=== PATIENT | male | born 1990 | race Caucasian/White ===

== ENCOUNTER 2016-07-22 21:56 | Emergency (ER) | payer SELFPAY ==
[2016-07-22] MEDS ORDERED: KETOROLAC TROMETHAMINE 60 MG/2 ML SDV IM ONE (23:50)
--- NOTE | 2016-07-23 01:46 | ER Document Report ---
ED Neck/Back Problem - General Mode of Arrival: Ambulatory Information source: Patient TRAVEL OUTSIDE OF THE [place] IN LAST 30 DAYS: No - HPI Patient complains to provider of: Pain Onset: Other - Feb 2016 Onset: Gradual Timing: Worse Context: Bending Exacerbated by: Movement of trunk <ADDISON MACK - Last Filed: 07/23/16 02:39> <MURALI FINNEGAN - Last Filed: 07/23/16 03:18> - General Chief Complaint: Back Pain Stated Complaint: BACK PAIN Notes: Patient is a 25-year-old male presenting to the emergency department concerned of back pain that began in February 2016, but has been worsening recently. Patient states that while in the [facility], he moved weapons around at work. Patient is now out of the [employer], and he works on vehicles. Patient states that it is difficult to straighten his back after bending over. Patient states that he tries to get people to pop his back, but it does not pop much. Patient also states that he feels multiple knots throughout his back. (ADDISON MACK) - Related Data Allergies/Adverse Reactions: No Known Allergies Allergy (Unverified 07/22/16 22:49) Past Medical History - General Information source: Patient - Social History Smoking Status: Current Every Day Smoker Chew tobacco use (# tins/day): No Frequency of alcohol use: Occasional Drug Abuse: None Family History: Reviewed & Not Pertinent Patient has suicidal ideation: No Patient has homicidal ideation: No Renal/ Medical History: Denies: Hx Peritoneal Dialysis <ADDISON MACK - Last Filed: 07/23/16 02:39> Review of Systems - Review of Systems Constitutional: No symptoms reported EENT: No symptoms reported Cardiovascular: No symptoms reported Respiratory: No symptoms reported Gastrointestinal: No symptoms reported Genitourinary: No symptoms reported Male Genitourinary: No symptoms reported Musculoskeletal: See HPI, Back pain Skin: No symptoms reported Hematologic/Lymphatic: No symptoms reported Neurological/Psychological: No symptoms reported -: Yes All other systems reviewed and negative <ADDISON MACK - Last Filed: 07/23/16 02:39> Physical Exam - Vital signs Interpretation: Normal - General General appearance: Appears well, Alert - HEENT Head: Normocephalic, Atraumatic Eyes: Normal Pupils: PERRL - Respiratory Respiratory status: No respiratory distress Chest status: Nontender Breath sounds: Normal Chest palpation: Normal - Cardiovascular Rhythm: Regular Heart sounds: Normal auscultation Murmur: No - Abdominal Inspection: Normal Distension: No distension Bowel sounds: Normal Tenderness: Nontender Organomegaly: No organomegaly - Back Back: Normal, Tender - Mild upper back tenderness to palpation bilaterally, right greater than left, Scoliosis - Extremities General upper extremity: Normal inspection, Nontender, Normal color, Normal ROM , Normal temperature General lower extremity: Normal inspection, Nontender, Normal color, Normal ROM , Normal temperature, Normal weight bearing. No: Marcelina's sign - Neurological Neuro grossly intact: Yes Cognition: Normal Orientation: AAOx4 [place] Coma Scale Eye Opening: Spontaneous [place] Coma Scale Verbal: Oriented Gene Coma Scale Motor: Obeys Commands [place] Coma Scale Total: 15 Speech: Normal Motor strength normal: LUE, RUE, LLE, RLE Sensory: Normal - Psychological Associated symptoms: Normal affect, Normal mood - Skin Skin Temperature: Warm Skin Moisture: Dry Skin Color: Normal <MURALI FINNEGAN - Last Filed: 07/23/16 03:18> - Vital signs Vitals: Temp Pulse Resp BP Pulse Ox 98.0 F 73 16 146/76 H 98 07/22/16 22:09 07/22/16 22:09 07/22/16 22:09 07/22/16 22:09 07/22/16 22:09 Course <ADDISON MACK - Last Filed: 07/23/16 02:39> - Diagnostic Test Radiology reviewed: Image reviewed, Reports reviewed <MURALI FINNEGAN - Last Filed: 07/23/16 03:18> - Re-evaluation Re-evalutation: 07/23/16 Patient with scoliosis. Patient was unaware of this. Likely why he is having some upper back issues. No midline tenderness to palpation. Neurologically intact. Patient has been given a copy and a picture of his x-ray to take to his primary care doctor. Stable for discharge home. Return if any worsening or concerning symptoms. Grateful for care. (MURALI FINNEGAN) - Vital Signs Vital signs: Temp Pulse Resp BP Pulse Ox 97.8 F 59 L 16 127/67 H 97 07/23/16 02:15 07/23/16 02:15 07/23/16 02:15 07/23/16 02:15 07/23/16 02:15 Discharge <ADDISON MACK - Last Filed: 07/23/16 02:39> <MURALI FINNEGAN - Last Filed: 07/23/16 03:18> - Discharge Clinical Impression: Scoliosis Qualifiers: Scoliosis type: unspecified scoliosis Spinal region: thoracic Qualified Code(s) : M41.9 - Scoliosis, unspecified Condition: Stable Disposition: HOME, SELF-CARE Instructions: Upper Back Strain ([facility]) Additional Instructions: Please follow-up with your doctor. Scribe Attestation: 07/23/16 03:18 I personally performed the services described in the documentation, reviewed and edited the documentation which was dictated to the scribe in my presence, and it accurately records my words and actions. (MURALI FINNEGAN) Scribe Documentation - Scribe Written by Scribe:: Addison Mack 07/23/2016 0146 acting as scribe for :: Vinny <ADDISON MACK - Last Filed: 07/23/16 02:39>
[2016-07-23 02:20] VITALS: BP 127/67
== END 2016-07-23 02:15 | disposition home or self-care (01) ==
LOC: ER 21:56
DX: M41.9 Scoliosis, unspecified (principal); M54.9 Dorsalgia, unspecified; F17.210 Nicotine dependence, cigarettes, uncomplicated
CPT/HCPCS: 99283; 96372; 71010; 72110; 72070; J1885

== ENCOUNTER 2016-08-12 08:09 | Emergency (ER) | payer SELFPAY ==
--- NOTE | 2016-08-12 09:07 | ER Document Report ---
HPI - HPI Patient complains to provider of: low back pain Onset: Other - Couple months Onset/Duration: Gradual Pain Level: 4 Context: 25-year-old male with chronic low back pain that is worse after heavy lifting at work. He was diagnosed with scoliosis the emergency department several weeks ago and he wants to know if it's worse because it pain got worse after work last night. No fever or chills. No saddle anesthesia. No radiculopathy. Associated Symptoms: None Exacerbated by: Movement Relieved by: Denies Similar symptoms previously: No Recently seen / treated by doctor: No - ROS ROS below otherwise negative: Yes Systems Reviewed and Negative: Yes All other systems reviewed and negative - DERM Skin Color: Normal Past Medical History - General Information source: Patient - Social History Smoking Status: Current Every Day Smoker Chew tobacco use (# tins/day): No Frequency of alcohol use: Rare Drug Abuse: None Lives with: Family Family History: Reviewed & Not Pertinent Patient has suicidal ideation: No Patient has homicidal ideation: No - Medical History Medical History: Negative Renal/ Medical History: Denies: Hx Peritoneal Dialysis Surgical Hx: Negative Vertical Provider Document - CONSTITUTIONAL Agree With Documented VS: Yes - INFECTION CONTROL TRAVEL OUTSIDE OF THE [place] IN LAST 30 DAYS: No - HEENT HEENT: Normocephalic - NECK Neck: Supple. negative: Lymphadenopathy-Left, Lymphadenopathy-Right - RESPIRATORY Respiratory: Breath Sounds Normal, No Respiratory Distress O2 Sat by Pulse Oximetry: 97 - CARDIOVASCULAR Cardiovascular: Regular Rate, Regular Rhythm - GI/ABDOMEN Gastrointestinal: Abdomen Soft, Abdomen Non-Tender, No Organomegaly - BACK Back: Normal Inspection. negative: CVA Tenderness-Right, CVA Tenderness-Left Notes: tender lumbar muscles - MUSCULOSKELETAL/EXTREMETIES Musculoskeletal/Extremeties: MAEW, FROM - NEURO Level of Consciousness: Awake, Alert Motor/Sensory: No Motor Deficit, No Sensory Deficit Deep Tendon Reflexes: 2+ - shonna ankle and patellar - DERM Integumentary: Warm, Dry, No Rash Course - Vital Signs Vital signs: Temp Pulse Resp BP Pulse Ox 98.1 F 72 16 115/46 L 97 08/12/16 08:15 08/12/16 08:15 08/12/16 08:15 08/12/16 08:15 08/12/16 08:15 Discharge - Discharge Clinical Impression: Chronic low back pain Qualifiers: Back pain laterality: bilateral Sciatica presence: without sciatica Qualified Code(s): M54.5 - Low back pain Condition: Good Disposition: HOME, SELF-CARE Instructions: Warm Packs ([facility]), Low Back Pain ([facility]), Acetaminophen, Anti- Inflammatory Medication ([facility]) Additional Instructions: warm compress see orthopedic doctor for evaluation and treatment Please complete the patient satisfaction survey if you get one, and return it.. If you do not receive a survey, then you can go to the [facility] website, [email or web address] and place your comments about your very good care. Thank you very much. It was a pleasure being your medical provider today. Prescriptions: Ibuprofen [Motrin 800 mg Tablet] 800 mg PO Q8HP PRN #30 tablet PRN Reason: Forms: Return to Work
[2016-08-12] MEDS ORDERED: IBUPROFEN 800 MG TABLET PO ONE (09:15)
[2016-08-12 09:26] VITALS: BP 110/40
== END 2016-08-12 09:28 | disposition home or self-care (01) ==
LOC: ER 08:09
DX: M54.5 Low back pain (principal); G89.29 Other chronic pain; F17.200 Nicotine dependence, unspecified, uncomplicated
CPT/HCPCS: 99283

== ENCOUNTER 2016-12-07 11:52 | Emergency (ER) | payer BC ==
[2016-12-07 12:05] VITALS: BP 154/83
--- NOTE | 2016-12-07 12:17 | ER Document Report ---
HPI - HPI Patient complains to provider of: Low back pain Onset: Yesterday Onset/Duration: Intermittent Quality of pain: Throbbing Severity: Moderate Pain Level: 3 Context: Patient states low back pain started yesterday. He performs repetitive motions at work lifting and twisting. Denies known injury. Patient states he has had this problem in the past. No bowel or bladder dysfunction, no sciatica. States has been cracking his back, and the pain starts about 30 minutes after that. Associated Symptoms: None Exacerbated by: Movement Relieved by: Denies Similar symptoms previously: Yes Recently seen / treated by doctor: No - ROS ROS below otherwise negative: Yes Systems Reviewed and Negative: Yes All other systems reviewed and negative - CONSTITUTIONAL Constitutional: DENIES: Fever - EENT EENT: DENIES: Congestion - NEURO Neurology: DENIES: Headache - CARDIOVASCULAR Cardiovascular: DENIES: Chest pain - RESPIRATORY Respiratory: DENIES: Trouble Breathing - GASTROINTESTINAL Gastrointestinal: DENIES: Abdominal Pain - URINARY Urinary: DENIES: Dysuria - MUSCULOSKELETAL Musculoskeletal: REPORTS: Back Pain - DERM Skin Color: Normal Skin Problems: None Past Medical History - General Information source: Patient - Social History Smoking Status: Current Every Day Smoker Frequency of alcohol use: Occasional Drug Abuse: None Lives with: Spouse/Significant other Family History: Reviewed & Not Pertinent Patient has suicidal ideation: No Patient has homicidal ideation: No - Medical History Medical History: Negative Surgical Hx: Negative - Immunizations Hx Diphtheria, Pertussis, Tetanus Vaccination: Yes Vertical Provider Document - CONSTITUTIONAL Agree With Documented VS: Yes Exam Limitations: No Limitations General Appearance: WD/WN, No Apparent Distress Notes: Patient noted to be sitting in bed with ankles crossed, on his phone. Patient able to rollover and get up without difficulty or discomfort noted. - INFECTION CONTROL TRAVEL OUTSIDE OF THE [place] IN LAST 30 DAYS: No - HEENT HEENT: Atraumatic, Normocephalic - RESPIRATORY Respiratory: Breath Sounds Normal, No Respiratory Distress O2 Sat by Pulse Oximetry: 97 - CARDIOVASCULAR Cardiovascular: Regular Rate, Regular Rhythm - GI/ABDOMEN Gastrointestinal: Abdomen Soft, Abdomen Non-Tender - MUSCULOSKELETAL/EXTREMETIES Musculoskeletal/Extremeties: MAEW Notes: Mild tenderness noted on palpation to lumbar spine and lumbar paraspinal muscles. Some discomfort voiced with leg raises, left leg more than right. - NEURO Level of Consciousness: Awake, Alert, Appropriate - DERM Integumentary: Warm, Dry, No Rash Course - Re-evaluation Re-evalutation: 12/07/16 13:32 X-rays negative and discussed with patient - Vital Signs Vital signs: Temp Pulse Resp BP Pulse Ox 99.1 F 101 H 16 154/83 H 97 12/07/16 12:03 12/07/16 12:03 12/07/16 12:03 12/07/16 12:03 12/07/16 12:03 Discharge - Discharge Clinical Impression: Low back strain Qualifiers: Encounter type: initial encounter Qualified Code(s): S39.012A - Strain of muscle, fascia and tendon of lower back, initial encounter Condition: Good Disposition: HOME, SELF-CARE Instructions: Ice Packs ([facility]), Oral Narcotic Medication ([facility]), Warm Packs ([facility]) , Low Back Pain ([facility]), Muscle Strain ([facility]) Additional Instructions: Medications as prescribed Ice or heat packs to your back Heavy lifting or repetitive twisting motions for 1 week You must follow-up with your primary care doctor if symptoms persist more than 1 week Return as needed Prescriptions: Cyclobenzaprine HCl [Flexeril 5 mg Tablet] 5 mg PO TID #15 tablet Hydrocodone/Acetaminophen [[place] 5-325 mg Tablet] 1 tab PO PRN PRN #15 tablet PRN Reason: Ibuprofen 800 mg PO PRN PRN #20 tablet PRN Reason:
--- NOTE | 2016-12-07 13:27 | RADIOLOGY REPORT (SQ) ---
EXAM DESCRIPTION: L SPINE WHOLE COMPLETED DATE/TIME: 12/07/2016 1:05 pm REASON FOR STUDY: pain COMPARISON: 07/23/2016. NUMBER OF VIEWS: Five views including obliques. TECHNIQUE: AP, lateral, oblique, and sacral radiographic images acquired of the lumbar spine. LIMITATIONS: None. FINDINGS: MINERALIZATION: Normal. SEGMENTATION: Normal. No transitional anatomy. ALIGNMENT: Normal. VERTEBRAE: Maintained height. No fracture or worrisome bone lesion. DISCS: Preserved height. No significant osteophytes or end plate irregularity. POSTERIOR ELEMENTS: Pedicles and facets are intact. No pars defect or posterior arch defects. HARDWARE: None in the spine. PARASPINAL SOFT TISSUES: Normal. PELVIS: Intact as visualized. No fractures or worrisome bone lesions. SI joints intact. OTHER: No other significant finding. IMPRESSION: NORMAL 5 VIEW LUMBAR SPINE. TECHNICAL DOCUMENTATION: JOB ID: [id number] [employer]- All Rights Reserved
[2016-12-07] MEDS ORDERED: HYDROCODONE/ACETAMINOPHEN 5-325 MG TABLET PO ONE (13:29)
== END 2016-12-07 13:42 | disposition home or self-care (01) ==
LOC: ER 11:52
DX: S39.012A Strain of muscle, fascia and tendon of lower back, initial encounter (principal); M54.5 Low back pain; F17.200 Nicotine dependence, unspecified, uncomplicated; X58.XXXA Exposure to other specified factors, initial encounter
CPT/HCPCS: 72110; 99283